=== PATIENT | female | born 1985 | race Caucasian/White ===

== ENCOUNTER 2017-12-09 20:34 | Emergency (ER) | payer OTHER ==
--- NOTE | 2017-12-09 21:13 | ED Physician Documentation ---
PD HPI LOWER EXT INJURY - Stated complaint Stated Complaint: L LEG LAC - Chief complaint Chief Complaint: Laceration - History obtained from History obtained from: Patient - History of Present Illness PD HPI LOW EXT INJURY LOCATION: Left Type of injury: Laceration (Accidentally cut herself with a knife to the left leg just prior to arrival She is [employer] and therefore up-to-date on tetanus.) Review of Systems Constitutional: reports: Reviewed and negative Cardiac: reports: Reviewed and negative Respiratory: reports: Reviewed and negative PD PAST MEDICAL HISTORY - Present Medications Home Medications: Ambulatory Orders Medication Instructions Recorded Confirmed Escitalopram Oxalate [Lexapro] 20 mg PO DAILY 12/09/17 12/09/17 buPROPion [Wellbutrin Sr] 100 mg PO DAILY 12/09/17 12/09/17 - Allergies Allergies/Adverse Reactions: Allergies Allergy/AdvReac Type Severity Reaction Status Date / Time No Known Drug Allergies Allergy Verified 12/09/17 20:45 PD ED PE NORMAL - Vitals Vital signs reviewed: Yes - General General: Alert and oriented X 3, No acute distress - Extremities Extremities: Other (On the left leg laterally over the proximal fibula there is a 2 cm shallow laceration with some gaping.) - Neuro Neuro: Alert and oriented X 3, Normal speech Results - Vitals Vitals: Vital Signs - 24 hr 12/09/17 20:41 Temperature 36.8 C Heart Rate 89 Respiratory 16 Rate Blood Pressure 135/95 H O2 Saturation 99 Oxygen O2 Source Room air Procedures - Laceration (location) L leg Length in cm: 2 Wound type: Linear Neurovascular status: Sensory intact, Motor intact Tendon involvement: Tendon intact Anesthesia: Lidocaine 1%, With bicarb Wound Preparation: Betadine, Irrigated copiously NS Skin layer closure: Nylon, Interrupted, Size #-0 - enter number (4-0), Sutures - enter # (5) Other: Tetanus UTD Complexity: Simple PD MEDICAL DECISION MAKING - Sepsis Event Vital Signs: Vital Signs - 24 hr 12/09/17 20:41 Temperature 36.8 C Heart Rate 89 Respiratory 16 Rate Blood Pressure 135/95 H O2 Saturation 99 Oxygen O2 Source Room air Departure - Departure Disposition: 01 Home, Self Care Clinical Impression: Laceration of left leg Condition: Good Record reviewed to determine appropriate education?: Yes Instructions: ED Laceration All Comments: Come back for any signs of infection which would include: Redness, swelling, drainage, increased pain, or fevers. Follow-up with your physician in 14 days for suture removal. Your blood pressure was elevated today on check into the emergency department. This does not mean that you have hypertension, it is a common phenomenon to come to the emergency department and have elevated blood pressure. I recommend that you see your primary care physician within the week to have it rechecked when you are feeling better. Discharge Date/Time: 12/09/17 22:00
[2017-12-09] MEDS ORDERED: BUFFERED LIDOCAINE 10 ML SYRINGE SUBQ ONE (21:26)
[2017-12-09 21:57] VITALS: BP 128/73
== END 2017-12-09 22:00 | disposition home or self-care (01) ==
LOC: ED 20:34
DX: S81.812A Laceration without foreign body, left lower leg, initial encounter (principal); R03.0 Elevated blood-pressure reading, without diagnosis of hypertension; W26.0XXA Contact with knife, initial encounter; Y93.89 Activity, other specified
CPT/HCPCS: 12001; 99282; 99283

== ENCOUNTER 2019-01-21 14:45 | Outpatient (CLI) | payer OTHER ==
[2019-01-21 16:03] VITALS: BP 120/70
--- NOTE | 2019-01-21 16:03 | SLEEP CARE CONSULTATION ---
Information from patient questionnaire entered by Ruma Engel. I have reviewed and concur with the information entered by Ruma Engel. This document represents the service I personally performed and the decisions made by me, Luz Salcedo RN, MSN, EXTRACTOR LOADER AND UNLOADER. History of Present Illness Reason for Visit: New patient Chief Complaint: reports: Insomnia, Unrefreshed sleep, Snoring, Excessive daytime sleepiness, Observed pauses in breathing, Fatigue Duration of Symptoms: over 5 years Usual bedtime: try to be in bed by 9pm Time it takes to fall asleep: over 60 minutes Snores at night: Yes Observed to quit breathing while asleep: Yes Sleeps alone due to snoring: No Number of times waking at night: 1-2 Reasons for waking at night: reports: Choking (observed by joselinesjody), Snoring, Pain (shoulder - past injury ), Bathroom, Other (unknown) Toss, Turn, or Twitch while sleeping: Yes Recalls having dreams: Yes (can be very vivid about monthly ) Usually gets out of bed at: 5:30 - 6 am Feels refreshed in the morning: No Morning headache: Yes (a couple times a week - resolves in a few hours with and without medication) Sleepy or fatigued during the day: Yes Ever fallen asleep while driving: No Takes day naps: Yes (sometimes - weekends for 1- 2 hours ) Dreams during day naps: Yes (on long naps) Prior sleep studies: No - Parasomnia Symptoms Ever been unable to move upon waking from sleep: Yes Walks in sleep: No Talks in sleep: Yes Ever acted out dreams in sleep: No Ever felt weak in the knees when startled or emotional: Yes (knee problems ) Bothered by creepy, crawly, restless sensations in legs: Yes (a few times a week - years ) Problems with memory or concentration: Yes Subjective Initial [place] Sleepiness Scale score: 13 Past Medical History Past Medical History: reports: Anxiety, Depression (joint pains (shoulder, hip and knee)), Other (chronic shoulder, - better with PT and acupuncture hip and knee pains -PT) Social History The patient's occupation is a [employer]. Patient is and lives in [place] . Have you smoked in the past 12 months: Yes Cigarettes per day (20/pack): 10 Years of smokin Quit date: both times when I was Smoking Pack Years: 7.5 Alcohol use: Yes Alcohol amount and frequency: 1-2 maybe once a week Caffeine use: Yes Caffeine amount and frequency: 5 shot americano daily Family History Family history of sleep disordered breathing: Yes Family Hx Sleep Apnea: Mother: Sleep apnea - Treated, Sibling: Snoring (deviated septum ) Allergies and Home Medications Known drug allergies: No Home medication list reviewed: Yes Allergy and home medication list: escitalopram 10mg 2 daily bupropion 150mg 1 daily Review of Systems Weight gain over past 5 years: 20-30 Weight loss over past 5 years: 20-50 Neurological: reports: headaches (history of migraines - treats with execedrin ) Psychiatric: reports: anxiety, depression (denies thoughts of hurting self or others ) Ear/Nose/Throat: reports: nasal congestion (intermittent ), sinus problems (intermittent ), nose bleeds (season change - uses saline nasal spray as needed. ), dry mouth/throat (upon waking ), wisdom teeth removed Endocrine: reports: too hot or cold, excessive thirst, increased appetite (with fatigue ) Musculoskeletal: reports: joint pain, neck pain, back pain, muscle pain or cramping, mobility problems (if pain limps ) Physical Exam Blood Pressure: 120/70 Cuff size: long Heart Rate: 80 O2 Saturation: 97 Height: 5 ft 5.75 in Weight: 217 lb 3.2 oz Body Mass Index: 35.3 BMI Classification: Obesity Class 2 Neck circumference: 15.5 HEENT: No craniofacial malformation Nostrils: patent to airflow Turbinates: normal Septum: deviated right Mouth and throat: narrow oropharynx Soft palate: long Hard palate: normal Uvula: normal Uvula visualization: 50% Mallampati Class II Tongue: normal in size Tonsils: 1+ Chin and jaw: normal size and position Neck: normal w/o lymphadenopathy or thyromegaly Heart: regular rate and rhythm Lungs: clear bilaterally Abdomen: soft Extremities: no edema or clubbing Neurologic: intact Impression and Plan 1. Suspected Obstructive Sleep Apnea-Hypopnea Syndrome, as suggested by a history of loud and irregular snoring, observed cessation of breath while aslee p, gasping or choking in sleep, morning headache, frequent awakening during the night, unrefreshed sleep, cognitive impairment, and excessive daytime sleepiness. Narrow oropharynx and obesity are common predisposing factors for obstructive sleep apnea-hypopnea syndrome. Synptoms of depression can overlap with those of sleep apnea. I recommend proceeding to polysomnography to confirm the diagnosis and to assess severity. If the patient has significant sleep disordered breathing, a manual CPAP titration study will also be performed to find the optimal treatment pressure. I informed the patient of what the sleep studies involve and after some discussion, obtained agreement to proceed. The pathophysiology of obstructive sleep apnea-hypopnea syndrome was discussed with the patient and health risks of cardiovascular and cerebrovascular disease if not treated. AAS brochure for obstructive sleep apnea-hypopnea syndrome given and reviewed. 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 Patient agreed to plan. 2. Possible Restless Leg Syndrome (RLS): as exhibited by an urge to move the legs and generally involves symptoms of uncomfortable and unpleasant sensations. Patient's symptoms occur a few times a week, generally in late evening and she also wakes to needing to move legs. Thus she may also be exhibiting PLMS which will be noted on sleep study if present. Symptoms usually begin or worsen with inactivity or periods of rest such as sitting or lying down. These symptoms can be partially or completely relieved with movement such as stretching, walking or other movement. Generally they occur late in the evening or at bedtime. Sometimes the urge to move legs can be without discomfort or involve the arms and other parts of the body. Symptoms can cause patient concern and difficulty initiating sleep affecting daytime functioning. RLS is a sensorimotor disorder that can be hereditary and is often associated with PLMS periodic limb movement of sleep. It can also be secondary to mild iron deficiency (serum ferritin less than 50mcg - 75mcg/L) and magnesium deficiencies. Other medical conditions associated with RLS are narcolepsy, migraine headaches, chronic obstructive pulmonary disease, Parkinson disease, multiple sclerosis, peripheral neuropathy, obstructive sleep apnea, diabetes mellitus, fibromyalgia, rheumatoid arthritis, nocturnal eating, obesity, thyroid disease and heart disease and renal failure as well as mood disorders and ADHD. Also, medications such as most antidepressants with exception of bupropion, some centrally active dopamine receptor antagonists, sedating antihistamines such as Benadryl can precipitate or aggravate this disorder. Other factors that can increase symptoms are sleep deprivation, caffeine, nicotine and alcohol use. I recommend ruling out these conditions if not already done. AASM Restless Leg syndrome pamphlet given and reviewed. * Schedule polysomnography +- manual CPAP titration study and return in 1-2 weeks after the study to discuss result and initiate therapy. * Avoid long distance driving or driving when feeling sleepy. * Avoid alcohol, sedative and muscle relaxant around bedtime. * Attempt to lose weight. * Follow up with PCP to rule out RLS etiology such as iron deficiency or her muscle skeletal pain. * Review instructions provided by trained office staff on how to prepare for the sleep study. * Return for follow-up after sleep study completed. I spent 100% of this 45 minute visit face to face with the patient with greater than 50% of this was spent time counseling the patient and coordination of care.
== END 2019-01-21 14:46 | disposition home or self-care (01) ==
LOC: SC 14:45
PROVIDERS: ATTEND Nurse Practitioner Family
DX: R06.83 Snoring (principal); R06.81 Apnea, not elsewhere classified; G47.8 Other sleep disorders; R41.89 Other symptoms and signs involving cognitive functions and awareness; G47.10 Hypersomnia, unspecified; F17.210 Nicotine dependence, cigarettes, uncomplicated; E66.9 Obesity, unspecified; Z68.35 Body mass index [BMI] 35.0-35.9, adult
CPT/HCPCS: 99204; 99212

== ENCOUNTER 2019-02-16 20:26 | Outpatient (CLI) | payer OTHER | END 2019-02-16 20:27 | disposition home or self-care (01) | LOC: SC 20:26 | PROVIDERS: ATTEND Internal Medicine Pulmonary Disease | DX: G47.33 Obstructive sleep apnea (adult) (pediatric) (principal); G47.63 Sleep related bruxism; E66.9 Obesity, unspecified; Z68.35 Body mass index [BMI] 35.0-35.9, adult | CPT/HCPCS: 95810 ==

== ENCOUNTER 2019-03-23 15:46 | Outpatient (CLI) | payer OTHER ==
--- NOTE | 2019-03-23 16:46 | SLEEP CARE CONSULTATION ---
Information from patient questionnaire entered by Ruma Engel. I have reviewed and concur with the information entered by Ruma Engel. This document represents the service I personally performed and the decisions made by me, Luz Salcedo RN, MSN, DIRECTOR OF OUTREACH. History of Present Illness Initial [place] Sleepiness Scale score: 13 Current [place] Sleepiness Scale score: 14 Additional HPI information: CARLEY MENA returns for follow up and results of the recently performed polysomnography. I explained the pathophysiology behind obstructive sleep apnea. We then spent quite a bit of time discussing different treatment options. For mild obstructive sleep apnea, surgery and oral appliance are alternatives to nasal CPAP therapy but in moderate or severe cases, nasal CPAP is the most effective and reliable treatment. I reviewed the impact of weight changes on sleep apnea and strongly recommended losing weight. After some discussion, the patient opted to go with the nasal CPAP therapy. I discussed intiation of treatment can be done with a manual titration study or with autoCPAP. The patient is more comfortable with a manual titration study so this will be ordered and scheduled. Patient counseled not drink alcohol less than 4 hours before bedtime as it can increase snoring and apnea. Patient was cautioned about risks of drowsy driving until sleepiness symptoms resolve. Patient denies drowsy driving. Sleep Study - Results Polysomnography/Home Sleep Study results: The quality of the study is good. The patient had normal sleep efficiency. The sleep architecture was abnormal for sleep fragmentation and reduced amount of time spent in slow wave sleep (N3). Respiratory monitoring showed moderate obstructive sleep apnea-hypopnea (AHI = 21.0) associated with frequent arousals, oxyhemoglobin desaturation and mild hypoxia (desire oxygen saturation of 83%). The respiratory events occurred mainly during supine sleep (supine AHI = 50.6; non-supine = 13.25). Snore was loud in intensity. There was no significant periodic leg movement of sleep. Cardiac rhythm was normal sinus rhythm without significant arrhythmia. No abnormal behavior (parasomnia) observed during the night except for bruxism. Allergies and Home Medications Known drug allergies: No Home medication list reviewed: Yes (no changes - same as last visit ) Review of Systems Review of systems same as previous: Yes Physical Exam Blood Pressure: 100/70 Cuff size: long Heart Rate: 72 O2 Saturation: 98 Height: 5 ft 5.75 in Weight: 216 lb 12.8 oz (with boots ) Body Mass Index: 35.2 BMI Classification: Obesity Class 2 Impression and Plan 1. Obstructive Sleep Apnea-Hypopnea Syndrome, moderate, with lowest oxygen saturation of 83%. Obviously this is the cause of the patients symptoms of unrefreshed sleep, and excessive daytime sleepiness. Positive pressure therapy could benefit her depression. As mentioned above, the patient will be scheduled for a manual titration study. Because the apnea is more severe supine, I instructed to avoid sleeping supine using pillow positioning until able to start CPAP use. 2. Bruxism, patient advised to follow up with her dentist for further evaluation and treatment with rationale explained. * Schedule manual titration study * Attempt to lose weight. * Avoid alcohol consumption near bedtime. * Avoid supine sleep until using CPAP. * The patient is again cautioned about driving until sleepiness completely resolves. * Follow up with dentist re bruxism. * Return one month after CPAP obtained. I will assess response to therapy and compliance at that time. Time Spent with Patient (minutes): 33 I spent 100% of this visit face to face with the patient with greater than 50% of this was spent time counseling the patient and coordination of care.
[2019-03-23 16:47] VITALS: BP 100/70
== END 2019-03-23 15:47 | disposition home or self-care (01) ==
LOC: SC 15:46
PROVIDERS: ATTEND Nurse Practitioner Family
DX: G47.33 Obstructive sleep apnea (adult) (pediatric) (principal); E66.9 Obesity, unspecified; Z68.35 Body mass index [BMI] 35.0-35.9, adult
CPT/HCPCS: 99212; 99214

== ENCOUNTER 2019-04-05 20:21 | Outpatient (CLI) | payer OTHER | END 2019-04-05 20:22 | disposition home or self-care (01) | LOC: SC 20:21 | PROVIDERS: ATTEND Internal Medicine Pulmonary Disease | DX: G47.33 Obstructive sleep apnea (adult) (pediatric) (principal) | CPT/HCPCS: 95811 ==

== ENCOUNTER 2019-04-21 14:42 | Outpatient (CLI) | payer OTHER ==
[2019-04-21 15:35] VITALS: BP 120/80
--- NOTE | 2019-04-21 15:35 | SLEEP CARE CONSULTATION ---
Information from patient questionnaire entered by Monica Galloway. I have reviewed and concur with the information entered by Monica Galloway. This document represents the service I personally performed and the decisions made by me, Luz Salcedo, RN, MSN, TAKER OFF. History of Present Illness Initial [place] Sleepiness Scale score: 13 Current [place] Sleepiness Scale score: 11 Additional HPI information: CARLEY MENA returns with partner for follow up and results of the recently performed manual titration polysomnography. I explained the pathophysiology behind obstructive sleep apnea. After some discussion, the patient opted to continue with the nasal CPAP therapy. Nasal autoCPAP set at 6 cmH20 will be ordered with rationale explained. A manual titration study will be ordered if unable to find optimal pressure with office adjustments. I explained how CPAP machine works with sample devices [email or web address] Dreamstation and [employer] [id number] and what to expect when using the machine. Using CPAP every night in order to get used to it was emphasized. Patient advised to put CPAP mask on before getting into bed so as not to fall asleep without CPAP. To assist acclimation to CPAP use, it could also be used for a short time during day while reading or watching TV. The patient was instructed to call the CPAP supplier to discuss any mechanical problem that may occur. If the mask given is uncomfortable or is difficult to keep on through the night even with adjustment, contact the CPAP supplier as many will replace with another mask style if notified before 30 days. If snoring or perceives is not getting enough air or too much air from the machine, notify this office. [facility] patient education PAP tips reviewed and given to patient. Patient counseled not drink alcohol less than 4 hours before bedtime as it can increase snoring and apnea. Patient does not drink alcohol. Patient was cautioned about risks of drowsy driving until sleepiness symptoms resolve. Patient denies drowsy driving. Patient had lab studies completed for further evaluation of RLS symptoms. No periodic limb movement noted on either sleep study. Sleep Study - Results Polysomnography/Home Sleep Study results: The quality of the study is good. CPAP was initiated at 4 cmH2O and titrated up to CPAP at 10 cmH2O. CPAP at 6 cmH2O appeared to be optimal (AHI of 1.5 per hour on the pressure). There was supine REM sleep on the pressure. Oxygen saturation was normal throughout the night. Lower CPAP settings appeared adequate as well. The patient tolerated positive airway pressure therapy very well. The patients sleep efficiency was normal. The sleep architecture was also normal. There was no significant periodic leg movement of sleep. Cardiac rhythm was normal sinus rhythm without significant arrhythmia. No abnormal behavior (parasomnia) observed during the night except for possible bruxsim.. Allergies and Home Medications Known drug allergies: No Home medication list reviewed: Yes (no changes from last visit ) Review of Systems Review of systems same as previous: Yes Physical Exam Blood Pressure: 120/80 Cuff size: long Heart Rate: 76 O2 Saturation: 98 Height: 5 ft 5.75 in Weight: 210 lb 12.8 oz Weight change since last visit: lost 6 pounds Body Mass Index: 34.2 BMI Classification: Obese Impression and Plan 1. Obstructive Sleep Apnea-Hypopnea Syndrome, moderate, with lowest oxygen saturation of 83% adequately controlled with CPAP set at 6cmH20. Obviously this is the cause of the patients symptoms of unrefreshed sleep, and excessive daytime sleepiness. Positive pressure therapy could benefit her anxiety / depression and her migraines. As mentioned above, the patient will be started on nasal autoCPAP therapy with pressure set at 6 cmH2O. Because the apnea is more severe supine, I instructed to avoid sleeping supine using pillow positioning until able to start CPAP use. * Nasal auto CPAP therapy, pressure at 6 cm H2O. * Attempt to lose weight. * Avoid alcohol consumption near bedtime. * Avoid supine sleep until using CPAP. * The patient is again cautioned about driving until sleepiness completely resolves. * Return one month after CPAP obtained. I will assess response to therapy and compliance at that time. Time Spent with Patient (minutes): 30 I spent 100% of this visit face to face with the patient with greater than 50% of this was spent time counseling the patient and coordination of care.
== END 2019-04-21 14:43 | disposition home or self-care (01) ==
LOC: SC 14:42
PROVIDERS: ATTEND Nurse Practitioner Family
DX: G47.33 Obstructive sleep apnea (adult) (pediatric) (principal); E66.9 Obesity, unspecified; Z68.34 Body mass index [BMI] 34.0-34.9, adult
CPT/HCPCS: 99212; 99214

== ENCOUNTER 2019-06-24 17:03 | Outpatient (CLI) | payer OTHER ==
--- NOTE | 2019-06-24 11:00 | SLEEP CARE CONSULTATION ---
Information from patient questionnaire entered by Monica Galloway. I have reviewed and concur with the information entered by Monica Galloway. This document represents the service I personally performed and the decisions made by me, Luz Salcedo, RN, MSN, FULLER BRUSH MAN. History of Present Illness Service Date and Time: 06/24/2019 1030 Reason for follow up: first compliance Equipment type: CPAP Equipment obtained from: [employer] Mask style: Nasal pillows Backup mask available: Yes (from sleep study) Last cushion change: at set up CPAP Compliance Data - Data Reviewed with Patient Average duration of nightly device use: 3h 16m Compliance rate %: 13 Current pressure setting (cmH2O): 6 Average residual AHI: 0.8 Average large leak: 1.5 liters per minute Subjective Patient concerns: reports: other (waking with mask off face most nights). denies: aerophagia, mask discomfort, air blowing in eyes, mask leak noise, condensation in mask/hose, nasal congestion, dry mouth, nose, throat, epistaxis Observed to snore while using device: No Current pressure setting perceived as: comfortable On therapy, patient: reports: sleeping better, awakening more refreshed, being more awake and alert during the day, more rested overall. denies: drowsiness while driving Initial [place] Sleepiness Scale score: 13 Current [place] Sleepiness Scale score: 5 Allergies and Home Medications Home medication list reviewed: No (no changes) Review of Systems Review of systems same as previous: Yes Physical Exam Height: 5 ft 5.75 in Impression and Plan 1. Obstructive Sleep Apnea-Hypopnea Syndrome,moderate , with poor treatment compliance and good apnea control. On CPAP therapy, the patient has better sleep quality and is more rested overall despite poor compliance. The patient is pleased with benefit of treatment and her [place] has reduced from 13 to 5. Evidently she is waking to mask off her face in the morning. She rarely wakes in the middle of the night to put mask back on. She states she has been working long hours at work and is very tired by time she goes to bed. She has not yet changed her mask cushions which could be a source of discomfort with longer use due to cushion breakdown from regular use. Thus she is advised to update her mask cushions regularly and as often as every two weeks to see if this assists her sleep length with CPAP. In addition, I discussed mask acclimation by using CPAP during the day while awake for a short while to see if this will also assist her to keep mask on through the night by getting more used to the feel of mask on face. In addition, this time may show her of any discomfort of use that can be addressed. Compliance guidelines again reviewed. Patient has lost a few more pounds of weight. I discussed how significant weight loss can reduce apnea as well as CPAP pressure requirements, symptoms to report for CPAP pressure change reviewed. Patient's apnea severity and rationale for treatment to reduce apnea, improve sleep quality and reduce hypertension, cardiovascular and cerebrovascular events was reviewed. * Continue CPAP pressure at 6 cmH2O * Change mask cushions * use for short periods during the day * Notify me if snoring with mask or feeling that the pressure is too much or too little * Continue to lose weight * Call this office if any problems using CPAP * Return for follow up in 1 month , or sooner if concerns arise Visit Type: Telehealth Video (to minimize risk of Covid 19 exposure and agrees to billing insurance for visit) Video Type: [employer] Patient Location: Home Other Participants: Child Location of Provider: Home Patient agrees and consents to this telehealth visit type: Yes Time Spent with Patient (minutes): 20 Provider Statement: I spent 100% of the Telehealth Video Call with the patient with greater than 50% spent counseling the patient and coordination of care.
== END 2019-06-24 17:04 | disposition home or self-care (01) ==
LOC: SC 17:03
PROVIDERS: ATTEND Nurse Practitioner Family
DX: G47.33 Obstructive sleep apnea (adult) (pediatric) (principal)

== ENCOUNTER 2019-08-10 13:12 | Outpatient (CLI) | payer OTHER ==
[2019-08-10 14:26] VITALS: BP 126/90
--- NOTE | 2019-08-10 14:26 | SLEEP CARE CONSULTATION ---
Information from patient questionnaire entered by Ruma Engel. I have reviewed and concur with the information entered by Ruma Engel. This document represents the service I personally performed and the decisions made by me, Luz Salcedo, RN, MSN, FACULTY RESEARCH PHYSICIAN. History of Present Illness Service Date and Time: 08/10/2019 1312 Previous diagnosis: Moderate, Obstructive Sleep Apnea-Hypopnea Syndrome AHI: 21.0 (in 2019) Reason for follow up: first compliance Equipment type: CPAP Equipment obtained from: [employer] (kgetting supplies as needed) Mask style: Nasal pillows Backup mask available: Yes (mask from sleep study) Last cushion change: last month Prior sleep studies: Yes Year and Where: 2019 - [facility] Type of Sleep Study: Polysomnography CPAP Compliance Data - Data Reviewed with Patient Average duration of nightly device use: 5.1 Compliance rate %: 23 Current pressure setting (cmH2O): 6 Humidity settin Average residual AHI: 0.2 Average large leak: zero Subjective Missed days of use due to: reports: other (varied work schedule) Patient concerns: reports: other (Hard to wind down to sleep sometimes ). denies: aerophagia, mask discomfort, air blowing in eyes, mask leak noise, condensation in mask/hose, nasal congestion, dry mouth, nose, throat, epistaxis (history of nose bleed before CPAP) Observed to snore while using device: No Current pressure setting perceived as: comfortable On therapy, patient: reports: sleeping better, awakening more refreshed, being more awake and alert during the day. denies: more rested overall, drowsiness while driving Initial [place] Sleepiness Scale score: 13 (in 2019) Current [place] Sleepiness Scale score: 5 Allergies and Home Medications Home medication list reviewed: No (no changes stated) Review of Systems Review of systems same as previous: No Physical Exam Blood Pressure: 126/90 Cuff size: long Heart Rate: 86 O2 Saturation: 98 Height: 5 ft 5.75 in Weight: 212 lb 6.4 oz Body Mass Index: 34.5 BMI Classification: Obese Impression and Plan 1. Obstructive Sleep Apnea-Hypopnea Syndrome, moderate, with poor treatment compliance and good apnea control. On CPAP therapy, the patient has better sleep quality and is more rested overall. 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 In addition, she has difficulty winding down at end of day.To improve ability to get to sleep, relaxing bedtime rituals to wind down discussed such as a warm shower, reading a relaxing book. Also striving for a regular sleep schedule will also assist her to get to sleep was discussed. Patient was advised to strive for more sleep. Insufficient sleep of less than 5-6 hours consistently can increase risk cardiac disease and diabetes. Most people require 7-9 hours of sleep for optimal mental and physical health. Thus she is advised to get a minimum of of 6 hours of sleep if unable to get 7 hours. Compliance guidelines reviewed. patient BMI is 34. She is advised to consider a diet consultation to assist her to lose weight. Patient's apnea severity and rationale for treatment to reduce apnea, improve sleep quality and reduce cardiovascular and cerebrovascular events was reviewed. * * Change auto CPAP pressure to 6 cmH2O * Notify me if snoring with mask or feeling that the pressure is too much or too little * Attempt to lose weight * consider diet consultation for weight loss * Obtain more sleep. * Call this office if any problems using CPAP * Return for follow up in 1-2 months , or sooner if concerns arise Time Spent with Patient (minutes): 20
== END 2019-08-10 13:13 | disposition home or self-care (01) ==
LOC: SC 13:12
PROVIDERS: ATTEND Nurse Practitioner Family
DX: G47.33 Obstructive sleep apnea (adult) (pediatric) (principal); E66.9 Obesity, unspecified; Z68.34 Body mass index [BMI] 34.0-34.9, adult
CPT/HCPCS: 99212; 99213

== ENCOUNTER 2019-12-03 13:58 | Outpatient (CLI) | payer OTHER ==
--- NOTE | 2019-12-03 13:55 | SLEEP CARE CONSULTATION ---
Information from patient questionnaire entered by Anu Vital. I have reviewed and concur with the information entered by Anu Vital. This document represents the service I personally performed and the decisions made by , Robyn Reagan ARNP. History of Present Illness Service Date and Time: 12/03/2019 1340 Previous diagnosis: Moderate, Obstructive Sleep Apnea-Hypopnea Syndrome AHI: 21.0 Reason for follow up: one month Equipment type: CPAP Equipment obtained from: [employer] (getting supplies as needed) Mask style: Nasal pillows Backup mask available: Yes (old mask) Last cushion change: 2 weeks Prior sleep studies: No Year and Where: 2018 [facility] Type of Sleep Study: Polysomnography HPI additional information: CARLEY MENA was diagnosed to have moderate, AHI 21.0, obstructive sleep apnea-hypopnea syndrome and returned today for CPAP therapy one month for compliance follow-up. Sleep Study - Results Prior sleep studies: No Year and Where: 2018 [facility] CPAP Compliance Data - Data Reviewed with Patient Average duration of nightly device use: 3 h 9 min Compliance rate %: 10 Current pressure setting (cmH2O): 6 Average residual AHI: 0.3 Central apnea: 0.0 Obstructive apnea: 0.0 Subjective Missed days of use due to: reports: illness Patient concerns: reports: nasal congestion (only when she was sick), dry mouth, nose, throat (dry mouth, lately only (illness and allergies)), other (right tonsil swollen and seems to be worse when using machine). denies: aerophagia, mask discomfort, air blowing in eyes, mask leak noise, condensation in mask/hose, epistaxis Initial [place] Sleepiness Scale score: 13 (in 2019) Allergies and Home Medications Drug allergies reviewed: Yes (NKDA) Home medication list reviewed: Yes (no changes) Review of Systems Review of systems same as previous: No (swelling tonsil and viral illness) Physical Exam Vital signs obtained and entered by: [facility] visit- no vitals obtained Height: 5 ft 5.75 in Impression and Plan 1. Obstructive Sleep Apnea-Hypopnea Syndrome, moderate, with poor treatment compliance and good apnea control. On CPAP therapy, the patient has better sleep quality and is more rested overall. Patient has been having problems with being sick with a viral illness and congestion as well as having her right tonsil swelling making it uncomfortable to use the CPAP therapy. I advised her to try to tolerate the CPAP at least the 4 hours needed for compliance as often as possible and will follow up with her again in a month or so. She does have an appointment with an ENT specialist for consultation about her swollen tonsil. She was cleared by testing of Covid virus or bacterial throat infections. Patient's apnea severity and rationale for treatment to reduce apnea, improve sleep quality and reduce cardiovascular and cerebrovascular events was reviewed. I also reviewed the benefit of consistent device use of CPAP for hypertension. * Continue auto CPAP pressure at 6 cmH2O * Keep ENT appointment and follow up with PCP as needed * Notify me if snoring with mask or feeling that the pressure is too much or too little * Call this office if any problems using CPAP * Return for follow up in 1-2 months, or sooner if concerns arise Visit Type: Telehealth Video Video Type: [employer] Location of Provider: Office Patient agrees and consents to this telehealth visit type: Yes Patient agrees to have their insurance billed: Yes Time Spent with Patient (minutes): 15 Provider Statement: I spent 100% of the Telehealth Video Call with the patient with greater than 50% spent counseling the patient and coordination of care.
== END 2019-12-03 13:59 | disposition home or self-care (01) ==
LOC: SC 13:58
PROVIDERS: ATTEND Nurse Practitioner Family
DX: G47.33 Obstructive sleep apnea (adult) (pediatric) (principal)

== ENCOUNTER 2020-02-12 14:01 | Outpatient (CLI) | payer OTHER ==
--- NOTE | 2020-02-12 11:56 | SLEEP CARE CONSULTATION ---
Information from patient questionnaire entered by Ruma Engel. I have reviewed and concur with the information entered by Ruma Engel. This document represents the service I personally performed and the decisions made by me, Luz Salcedo, RN, MSN, WHEEL ALIGNMENT MECHANIC. History of Present Illness Service Date and Time: 02/12/2020 1100 Previous diagnosis: Moderate, Obstructive Sleep Apnea-Hypopnea Syndrome AHI: 21.0 (in 2019) Reason for follow up: other (2 month with pressure change) Equipment type: CPAP Equipment obtained from: [email or web address] (getting supplies as needed) Mask style: Nasal pillows Backup mask available: Yes (old) Last cushion change: months Prior sleep studies: Yes Year and Where: [address] - [facility] Type of Sleep Study: Polysomnography HPI additional information: Reviewed past visit notes. Patient had been struggling to use CPAP due to tonsilar abscess and an ENT consult was planned. CPAP Compliance Data - Data Reviewed with Patient Average duration of nightly device use: 5 hr 42 min Compliance rate %: 33 (60 days) Current pressure setting (cmH2O): 6 Humidity setting: auto Heated hose setting: auto Average residual AHI: 0.3 Subjective Missed days of use due to: reports: illness Patient concerns: reports: dry mouth, nose, throat (dry throat ). denies: aerophagia, mask discomfort, air blowing in eyes, mask leak noise, condensation in mask/hose, nasal congestion, epistaxis Observed to snore while using device: No Current pressure setting perceived as: comfortable On therapy, patient: reports: sleeping better, awakening more refreshed, being more awake and alert during the day, more rested overall (somewhat - sleep interrupted by throat discomfort). denies: drowsiness while driving Initial [place] Sleepiness Scale score: 13 (in 2019) Current [place] Sleepiness Scale score: 4 Allergies and Home Medications Known drug allergies: No Home medication list reviewed: Yes (new: pain meds / spironolactone ) Allergy and home medication list: Tylenol 500mg, 3 tabls every 4 hours prn Motrin 600mg 1 tablet every 4 hours, Alternates each of above for post op pain as directed. Escitalopram 10mg prn Buprion 150mg daily Spironolactone 25mg, 2 tablets 2 times a day Review of Systems Review of systems same as previous: Yes (Tonsilectomy 01/31 and surgery to repair post op bleeder) Physical Exam Height: 5 ft 5.75 in Weight: 208 lb (no change) Body Mass Index: 33.8 BMI Classification: Obese Impression and Plan 1. Obstructive Sleep Apnea-Hypopnea Syndrome, moderate, with fair treatment compliance and good apnea control. On CPAP therapy, the patient has somewhat better sleep quality and is more rested overall. Her [place] Scale has improved from 13 to 4 since CPAP use. Her compliance fell due to tonsillar abscess. Since recent tonsillectomy, her compliance has improved. However, she is waking to dry throat interrupting sleep in addition to post operative pain. Thus I verbally instructed her how to increase her humidity on her device. It was changed from auto to manual and set at 6. Rationale why to adjust humidity and heated hose discussed. In addition, I advised adequate fluids during the day. Compliance goals discussed and rationale for follow up. In addition, I advised her to change her mask cushion more frequently to reduce irritation to nostrils that can occur as the mask cushion wears out. Currently patients BMI is 34.2 obesity class . I discussed how obesity increases the risk of apnea, CPAP pressure requirements and advised her to attempt to lose weight once she has recovered sufficiently from her tonsillectomy. A diet consultation can be helpful in achieving optimal weight loss goals which can be obtained from her PCP. Symptoms to report for additional pressure adjustment discussed. Patient's apnea severity and rationale for treatment to reduce apnea, improve sleep quality and reduce cardiovascular and cerebrovascular events was reviewed. I also reviewed the benefit of consistent device use of CPAP for depression/anxiety. She has noted some benefit since starting CPAP. Maximum benefit is achieved when patient is able to use it longer periods with all her sleep. * Continue CPAP pressure at 6 cmH2O * Adjust humidity / heated hose. * Notify me if snoring with mask or feeling that the pressure is too much or too little * Attempt to lose weight * Call this office if any problems using CPAP * Return for follow up in 1-2 months , or sooner if concerns arise Counseling Topics: Weight control Visit Type: Telehealth Video Video Type: [employer] Patient Location: Home Location of Provider: Home Patient agrees and consents to this telehealth visit type: Yes Patient agrees to have their insurance billed: Yes Time Spent with Patient (minutes): 26 Provider Statement: I spent 100% of the Telehealth Video Call with the patient with greater than 50% spent counseling the patient and coordination of care.
== END 2020-02-12 14:02 | disposition home or self-care (01) ==
LOC: SC 14:01
PROVIDERS: ATTEND Nurse Practitioner Family
DX: G47.33 Obstructive sleep apnea (adult) (pediatric) (principal); E66.9 Obesity, unspecified; Z68.33 Body mass index [BMI] 33.0-33.9, adult

== ENCOUNTER 2020-05-26 13:49 | Outpatient (CLI) | payer OTHER ==
--- NOTE | 2020-05-26 14:16 | SLEEP CARE CONSULTATION ---
Information from patient questionnaire entered by Anu Vital. I have reviewed and concur with the information entered by Anu Vital. This document represents the service I personally performed and the decisions made by me, Robyn Reagan ARNP. History of Present Illness Service Date and Time: 05/26/2020 1349 Previous diagnosis: Moderate, Obstructive Sleep Apnea-Hypopnea Syndrome AHI: 21.0 (in 2018) Reason for follow up: six month (Discuss recent oral surgery) Equipment type: CPAP Equipment obtained from: [employer] (getting supplies as needed) Mask style: Nasal pillows Prior sleep studies: Yes Year and Where: 2019 - [facility] Type of Sleep Study: Polysomnography HPI additional information: CARLEY MENA was diagnosed to have moderate, AHI 21.0, obstructive sleep apnea-hypopnea syndrome and returned today for CPAP therapy six month, discuss oral surgery follow-up. After she had her septoplasty in April her doctor recommended that she follow up to see if her AHI has changed. She has not been using her CPAP since March. She has had difficulty with pressure and getting moisture level comfortable since her first surgery in January (Tonsillectomy). Subjective Initial [place] Sleepiness Scale score: 13 (in 2018) Current [place] Sleepiness Scale score: 5 Allergies and Home Medications Home medication list reviewed: Yes (Spirolactone) Review of Systems Review of systems same as previous: No (Tonsilectomy 02/01/20; Septoplasty 04/27/20) Physical Exam Heart Rate: 95 O2 Saturation: 97 Height: 5 ft 5.75 in Weight: 230 lb Body Mass Index: 37.4 BMI Classification: Obese Impression and Plan 1. Obstructive Sleep Apnea-Hypopnea Syndrome, moderate. Carley has had a tonsillectomy (January 2020) and a septoplasty (April 2020). She has not been able to get comfortable using her CPAP since about March. She feels the pressure is too much and cannot adjust the humidity to control condensation. She has been feeling rested most mornings, her snoring has reduced and she has not woken herself up snoring, choking or gasping for air. Her [place] was initially 13/24 and today measures 5/24, showing a significant improvement of sleepiness. She was advised to have a repeat sleep study to re-evaluate her diagnosis and severity. I feel this is a good idea. She has not been using her CPAP and her symptoms have significantly improved. I will have her repeat a HST and follow up with her after the study. Patient's apnea severity and rationale for treatment to reduce apnea, improve sleep quality and reduce cardiovascular and cerebrovascular events was reviewed. * Repeat sleep study (HST) * Attempt to lose weight * Return for follow up after sleep study completed Counseling Topics: Weight loss health impact Visit Type: In Office Time Spent with Patient (minutes): 15 Provider Statement: I spent 100% of the Face to Face Visit with the patient with greater than 50% spent counseling the patient and coordination of care.
== END 2020-05-26 13:50 | disposition home or self-care (01) ==
LOC: SC 13:49
PROVIDERS: ATTEND Nurse Practitioner Family
DX: G47.33 Obstructive sleep apnea (adult) (pediatric) (principal); E66.9 Obesity, unspecified; Z68.37 Body mass index [BMI] 37.0-37.9, adult
CPT/HCPCS: 99212

== ENCOUNTER 2020-06-14 13:26 | Outpatient (CLI) | payer OTHER | END 2020-06-14 13:27 | disposition home or self-care (01) | LOC: SC 13:26 | PROVIDERS: ATTEND Nurse Practitioner Family | DX: G47.33 Obstructive sleep apnea (adult) (pediatric) (principal) | CPT/HCPCS: 95806 ==

== ENCOUNTER 2020-06-23 14:37 | Outpatient (CLI) | payer OTHER ==
--- NOTE | 2020-06-23 14:54 | SLEEP CARE CONSULTATION ---
Information from patient questionnaire entered by Anu Vital. I have reviewed and concur with the information entered by Anu Vital. This document represents the service I personally performed and the decisions made by , Robyn Reagan ARNP. History of Present Illness Service Date and Time: 06/23/2020 1437 Initial [place] Sleepiness Scale score: 13 (in 2019) Current [place] Sleepiness Scale score: 5 Additional HPI information: CARLEY MENA returns for follow up and results of the recently performed home sleep study. The patient was informed of the following findings: no significant sleep disordered breathing with an average AHI of 2.4 and desire oxygen saturation of 87%. I explained the pathophysiology behind obstructive sleep apnea. Patient does not have sleep apnea and was advised how weight gain could increase the risk of developing sleep apnea in the future. I strongly encouraged the patient to lose weight. Patient has moderate snoring. Snoring can be reduced by weight loss. Weight loss is best achieved with diet consult. Patient instructed to contact PCP for referral. Snoring can also be treated with an oral appliance from a dentist. Advised to check insurance coverage. In addition, an ENT evaluation can be do to see if other treatment is indicated. Patient counseled not drink alcohol less than 4 hours before bedtime as it can increase snoring and apnea. Patient was cautioned about risks of drowsy driving until sleepiness symptoms resolve. Sleep Study - Results Type of Sleep Study: Home sleep study Prior sleep studies: Yes Year and Where: 2019 - [facility] Polysomnography/Home Sleep Study results: Physician Impression: The quality of the study is good. The length of the study is adequate (> 240 minutes). Please also see the tabulated and graphic data. 1. No significant sleep disordered breathing, with an AHI of 2.4/hr and desire SaO2 of 87%. During the study, the patient had 3 apneas (3 obstructive, 0 central, 0 mixed) and 12 hypopneas. The longest episode lasted 69.5 seconds. The few respiratory events occurred more frequently during supine sleep (supine AHI was 3.7 and non-supine, 0.40). 2. Hypoxemia (ICD-10 R09.02), minimal, with the lowest oxygen saturation of 87 % and 1.3 minutes with SaO2 under 90%. Baseline oxygen saturation was normal (Average oxygen saturation was 93%). Allergies and Home Medications Home medication list reviewed: Yes (spironolactone) Review of Systems Review of systems same as previous: Yes (no changes) Physical Exam Heart Rate: 96 O2 Saturation: 97 Height: 5 ft 5.75 in Weight: 226 lb Body Mass Index: 36.7 BMI Classification: Obese Impression and Plan 1. Snoring but no significant sleep disordered breathing. Her AHI is significantly reduced from her previous study prior to surgery and she no longer needs CPAP therapy for sleep apnea. Patient advised that often weight loss will reduce snoring as well as apnea risk. An oral appliance can also be used for snoring. This would require a dental consultation. Patient cautioned not to use other online appliances as can cause bite issues. A list of accredited dentists in [facility] and one local dentist who makes oral appliances is available in the office. Patient is advised to check if insurance will cover. An ENT consult can also be helpful to determine if any other treatment is an option. * Discontinue CPAP * Continue to try to lose weight * Avoid alcohol consumption near bedtime * Return as needed for follow up. Counseling Topics: Weight loss health impact, Weight control Visit Type: In Office Time Spent with Patient (minutes): 11 Provider Statement: I spent 100% of the Face to Face Visit with the patient with greater than 50% spent counseling the patient and coordination of care.
== END 2020-06-23 14:38 | disposition home or self-care (01) ==
LOC: SC 14:37
PROVIDERS: ATTEND Nurse Practitioner Family
DX: R06.83 Snoring (principal); E66.8 Other obesity; Z68.36 Body mass index [BMI] 36.0-36.9, adult
CPT/HCPCS: 99212